=== PATIENT | male | born 1990 | race African-American/Black ===

== ENCOUNTER 2022-06-05 18:10 | Emergency (ER) | payer MEDICAID ==
[~2022-06-05] VITALS: Ht 172.7 cm; Wt 73.0 kg
[2022-06-05 18:29] VITALS: BP 140/103
== END 2022-06-05 20:14 | disposition home or self-care (01) ==
LOC: ER 18:10
DX: F41.9 Anxiety disorder, unspecified (principal)
CPT/HCPCS: 99281